=== PATIENT | male | born 1955 | race African-American/Black ===

== ENCOUNTER 2016-07-13 11:44 | Emergency (ER) | payer MEDICAID, OTHER ==
[~2016-07-13] VITALS: Ht 167.6 cm; Wt 79.4 kg
[2016-07-13 12:14] VITALS: BP 150/87
[2016-07-13 13:00] LABS: Basophils # (auto) 0 uL; Basophils % (auto) 0.5 % (0.0-2.0); Eosinophils # (auto) 0.1 uL; Eosinophils % (auto) 2.6 % (0.0-7.0); Hematocrit 45.1 % (41.0-53.0); Hemoglobin 14.9 g/dL (13.5-17.5); Lymphocytes # (auto) 2.5 uL; Lymphocytes % (auto) 45.3 % (10.0-50.0); Mean Corpuscular Hemoglobin 32.6 pg (28.0-32.0); Mean Corpuscular Hgb Conc. 33.1 g/dL (32.0-36.0); Mean Corpuscular Volume 98.5 fL (80.0-100.0); Mean Platelet Volume 7.9 fL (7.4-10.4); Monocytes # (auto) 0.7 uL; Neutrophils # (auto) 2.2 uL; Neutrophils % (auto) 39.6 % (37.0-80.0); Platelet Count (auto) 324 10^3/uL (140-450); Red Cell Distribution Width 12.8 % (11.6-16.0); White Blood Cell 5.6 10^3/uL (4.4-10.8)
[2016-07-13 14:19] LABS: Albumin 3.6 g/dL (3.4-5.0); BUN/Creatinine Ratio 15.6; Bilirubin, Total 0.7 mg/dL (0.2-1.0); Calcium 8.5 mg/dL (8.5-10.1); Magnesium 2.5 mg/dL (1.6-2.6); Potassium 4.3 mmol/L (3.5-5.1); Total Protein 7.5 g/dL (6.4-8.2)
== END 2016-07-13 16:59 | disposition left against medical advice (07) ==
LOC: ER 11:44
DX: R07.89 Other chest pain (principal); R10.30 Lower abdominal pain, unspecified; Z53.21 Procedure and treatment not carried out due to patient leaving prior to being seen by health care provider
CPT/HCPCS: 36415; 80053; 83735; 84484; 85025; 93005

== ENCOUNTER 2019-02-01 19:55 | Emergency (ER) | payer OTHER ==
[~2019-02-01] VITALS: Ht 167.6 cm; Wt 80.7 kg
[2019-02-01 23:28] VITALS: BP 137/83
[2019-02-01] MEDS ORDERED: ACETAMINOPHEN/CODEINE#3 (300/30mg) TAB PO ONE (23:30)
== END 2019-02-02 00:16 | disposition home or self-care (01) ==
LOC: ER 19:59
DX: J06.9 Acute upper respiratory infection, unspecified (principal)